=== PATIENT | female | born 1970 | race Asian ===

== ENCOUNTER 2017-05-09 12:36 | Inpatient (IN) | payer BC ==
[~2017-05-09] VITALS: Ht 157.5 cm; Wt 52.2 kg
[2017-05-09 12:57] VITALS: BP_SYST 129
--- NOTE | 2017-05-09 13:05 | NUR ---
Patient to ER bed 07 to gown for evaluation. Side rails up.
[2017-05-09 13:14] LABS: BILIRUBIN,URINE NEGATIVE (NEGATIVE); CLARITY/URINE SL HAZY (CLEAR); COLOR,URINE YELLOW (YELLOW); GLUCOSE,URINE NEGATIVE (NEGATIVE); KETONES,URINE 3+ (NEGATIVE); LEUKOCYTE ESTERASE ,URINE NEGATIVE (NEGATIVE); NITRITE, URINE NEGATIVE (NEGATIVE); PROTEIN URINE 1+ (NEGATIVE); UROBILINOGEN,URINE 0.2 (0.2-1.0)
--- NOTE | 2017-05-09 13:15 | NUR ---
Pt brought by , wheelchair requested A&Ox4, pt c/o 03/12 Left lower abdomen pain radiating to the back starting this am, nausea and vomiting , respirations even and unlabored, cap refill <3,skin pink and warm, pt denies medical conditions,
--- NOTE | 2017-05-09 13:15 | NUR ---
Dr Mcneill at bedside examining patient
[2017-05-09 13:16] LABS: BLOOD, URINE TRACE (NEGATIVE)
[2017-05-09 13:22] LABS: BACTERIA,URINE FEW /HPF (None Seen)
[2017-05-09 13:23] LABS: MUCUS,URINE 1+ /LPF (None Seen)
[2017-05-09] MEDS ORDERED: NACL 0.9% 1,000 ML IV ONE (13:28)
[2017-05-09] MEDS ORDERED: KETOROLAC TROMETHAMINE 30 MG VIAL IVP ONE (13:30)
[2017-05-09] MEDS ORDERED: ONDANSETRON HCL 4 MG/2 ML VIAL IVP ONE ×4 (13:45→17:15)
[2017-05-09 13:52] LABS: BASOPHILS % (AUTO) 0.1 % (0.0-2.0); EOSINOPHILS % (AUTO) 0.1 % (0.0-4.0); HEMATOCRIT 40.6 % (36-48); HEMOGLOBIN 13.8 g/dL (12.0-16.0); LYMPHOCYTES # (AUTO) 0.5 K/uL (1.0-5.5); LYMPHOCYTES % (AUTO) 4.9 % (20.5-51.5); MEAN CORPUSCULAR HEMOGLOBIN 31 pg (27-31); MEAN CORPUSCULAR HGB CONC 34 % (32-36); MEAN CORPUSCULAR VOLUME 93 fL (79.0-98.0); MONOCYTES # (AUTO) 0.2 K/uL (0.0-1.0); MONOCYTES % (AUTO) 2.1 % (1.7-9.3); NEUTROPHILS % (AUTO) 92.8 % (40.0-70.0); PLATELET COUNT (AUTO) 199 K/uL (130-430); RED BLOOD CELL COUNT(AUTO) 4.38 MIL/uL (4.2-6.2); RED CELL DISTRIBUTION WIDTH 11.8 % (9.0-15.0); WHITE BLOOD COUNT (AUTO) 9.7 K/uL (4.8-10.8)
[2017-05-09 13:55] LABS: CALCIUM 8.7 mg/dL (8.4-11.0); CREATININE 0.46 mg/dL (0.55-1.30); POTASSIUM 3.6 mmol/L (3.5-5.1)
[2017-05-09 14:00] LABS: ALBUMIN 4.6 g/dL (3.4-4.8); TOTAL BILIRUBIN 0.8 mg/dL (0.0-1.0)
[2017-05-09] MEDS ORDERED: fentaNYL CITRATE/PF 100 MCG/2 ML AMP IVP ONE (14:00)
--- NOTE | 2017-05-09 14:12 | NUR ---
Pt off the unit for CT
--- NOTE | 2017-05-09 14:26 | NUR ---
Pt returned from CT on stable condition, VS WNL, pain level decreased from 10 to 5 after fentanyl administration. no active nausea or vomiting noted.
[2017-05-09] MEDS ORDERED: HYDROmorphone 1 MG INJ. 1 MG/ML AMPUL IVP ONE ×2 (14:45→17:15)
--- NOTE | 2017-05-09 15:01 | NUR ---
Pt pain level 6/10 L lower abdomen, pt medicated as ordered with Dilaudid, will continue to monitor.
--- NOTE | 2017-05-09 15:19 | NUR ---
Patient to US via wheelchair
--- NOTE | 2017-05-09 16:15 | NUR ---
pt back from US via wheelchair
--- NOTE | 2017-05-09 16:49 | NUR ---
mMedication reconciliation completed with information provided by patient. Any prior medication reconciliation on file was reviewed and corrected.
--- NOTE | 2017-05-09 17:47 | NUR ---
medicated pt for pain 12/10
--- NOTE | 2017-05-09 17:54 | NUR ---
report given to Yenni
--- NOTE | 2017-05-09 17:55 | NUR ---
REPORT REPORT RECEIVED FROM ED NURSE. AWAITING PATIENT ARRIVAL, TJ ADMITTING NURSE TO HELP WITH ADMISSION PROCESS.
[2017-05-09 18:04] VITALS: BP_SYST 123
--- NOTE | 2017-05-09 18:04 | NUR ---
ADMISSION NOTE Received patient from ER via danielle, received report from THERMOSTAT REPAIRER. Patient admitted with diagnosis of LEFT OVARIAN MASS. Patient oriented to hospital routine, call light, toileting and safety-patient verbalized understanding.
--- NOTE | 2017-05-09 18:34 | NUR ---
OPENING NOTE PATIENT RESTING COMFORTABLY, COMPLAINTS OF PAIN 6/10, GIVEN PAIN MEDICATION PRIOR TO COMING TO THE FLOOR. GIVEN ZOFRAN AND DILAUDID IN ED. PATIENTS IV RUNNING PER MD ORDERS. PATIENTS BED IN LOWEST POSITION, CALL LIGHT WITHIN REACH, AND SIDE RAILS ARE UP FOR SAFETY MEASURES. PATIENT SHOWN CALL LIGHT FUNCTION, ENCOURAGED TO CALL WHEN NEEDS ARISE. WILL CONTINUE TO MONITOR PATIENT AND FOLLOW UP NECESSARY.
[2017-05-09] MEDS: D5/0.45 NS 1,000 ML IV SCH (18:41)
--- NOTE | 2017-05-09 19:47 | NUR ---
INITIAL ASSESSMENT PATIENT IN BED RESTING, FAMILY AT BEDSIDE. PATIENT DENIES ANY PAIN AT THIS TIME. NOTED ABDOMEN NONDISTENDED, PATIENT APPEARS GUARDED TO ABDOMEN. PATIENT AAO X4, ABLE TO MAKE NEEDS KNOWN. BED IN LOWEST POSITION. ENCOURAGE PATIENT TO CALL FOR ASSISTANCE. CALL LIGHT IN REACH.
--- NOTE | 2017-05-09 19:55 | NUR ---
paged paged for Dr Burger, dialed . s/w Viviane.
[2017-05-09] MEDS ORDERED: HYDROmorphone 2 MG/ML VIAL IVP PRN (20:15)
[2017-05-09] MEDS ORDERED: HYDROmorphone 1 MG INJ. 1 MG/ML AMPUL IVP PRN (20:15)
--- NOTE | 2017-05-09 22:00 | NUR ---
PAIN PAIN MEDICATION PROVIDED TO PATIENT. PATIENT REPORTS THE DILAUDID MEDICATION HELPS. WILL CONTINUE TO MONITOR.
[2017-05-09 23:21] VITALS: BP_SYST 123
[2017-05-10] VITALS (7 sets, daily range): BP systolic 95–109
--- NOTE | 2017-05-10 00:36 | NUR ---
ROUND PATIENT RESTING, DENIES ANY PAIN AT THIS TIME. ASSISTED PATIENT TO BATHROOM SAFELY. PATIENT BACK IN BED, RESTING WITH AT BEDSIDE. BED IN LOWEST POSITION, CALL LIGHT IN REACH.
[2017-05-10] MEDS: D5/0.45 NS 1,000 ML IV SCH ×2 (02:39→09:45)
--- NOTE | 2017-05-10 02:53 | NUR ---
MEDICATIONS HUNG NEW BAG OF IV FLUIDS PER MD ORDER. PATIENT RESTING AT THIS TIME, EASILY AROUSABLE, DENIES ANY PAIN AT THIS TIME.
--- NOTE | 2017-05-10 04:46 | NUR ---
ROUNDS PATIENT RESTING, DENIES ANY PAIN AT THIS TIME. FAMILY AT BEDSIDE WITH PATIENT FOR COMFORT.
[2017-05-10 06:38] LABS: BASOPHILS % (AUTO) 0.1 % (0.0-2.0); EOSINOPHILS % (AUTO) 0.2 % (0.0-4.0); HEMATOCRIT 33.9 % (36-48); HEMOGLOBIN 11.6 g/dL (12.0-16.0); LYMPHOCYTES # (AUTO) 0.9 K/uL (1.0-5.5); LYMPHOCYTES % (AUTO) 10.3 % (20.5-51.5); MEAN CORPUSCULAR HEMOGLOBIN 32 pg (27-31); MEAN CORPUSCULAR HGB CONC 34 % (32-36); MEAN CORPUSCULAR VOLUME 92 fL (79.0-98.0); MONOCYTES # (AUTO) 0.5 K/uL (0.0-1.0); MONOCYTES % (AUTO) 5.8 % (1.7-9.3); NEUTROPHILS # (AUTO) 7.1 K/uL (1.8-7.7); NEUTROPHILS % (AUTO) 83.6 % (40.0-70.0); PLATELET COUNT (AUTO) 182 K/uL (130-430); RED BLOOD CELL COUNT(AUTO) 3.67 MIL/uL (4.2-6.2); RED CELL DISTRIBUTION WIDTH 11.7 % (9.0-15.0); WHITE BLOOD COUNT (AUTO) 8.5 K/uL (4.8-10.8)
--- NOTE | 2017-05-10 07:24 | NUR ---
CLOSING PATIENT AWAKE, ALERT, ORIENTED X4. FAMILY AT BEDSIDE. ENDORSED TO DAYSHIFT OF POSSIBLE PROCEDURE TODAY PER MD, PATIENT FAMILY REQUEST TO WAIT TO SIGN ANYTHING UNTIL SPEAKS WITH MD, NURSE MADE AWARE. PATIENT DENIES ANY PAIN AT THIS TIME. BED IN LOWEST POSITION, CALL LIGHT IN REACH.
--- NOTE | 2017-05-10 08:13 | NUR ---
OPENING NOTE PATIENT RESTING COMFORTABLY, COMPLAINTS OF PAIN, TOLERABLE 5/10. PATIENT TO HAVE SURGERY TODAY. PATIENT SPOKE WITH DR. PACHECO. CONSENT IS SIGNED. CHECKLIST STARTED BY INSTRUCTIONAL TECHNOLOGY COORDINATOR NURSE. PATIENTS BED IN LOWEST POSITION, CALL LIGHT WITHIN REACH, AND SIDE RAILS ARE UP FOR SAFETY MEASURES. PATIENTS IS AT BEDSIDE FOR COMFORT. PATIENTS IV RUNNING PER MD ORDERS. WILL KEEP PATIENT UPDATED TO TIME OF SURGERY, POSSIBLY EARLY 0900. WILL CONTINUE TO MONITOR PATIENT FOR CHANGES IN STATUS.
--- NOTE | 2017-05-10 08:33 | NUR ---
JUNIOR CALLED DOWN TO O.R. SPOKE WITH NURSE IN OPERATING ROOM REGARDING URINE . OKAY TO ORDER PER DR. PACHECO. ORDER PLACED BY NURSE.
--- NOTE | 2017-05-10 08:37 | NUR ---
LAB CALLED LAB TO SEE IF URINE WAS STILL IN THE LAB FOR COMPLETION OF URINE HCG. PATIENT HAS ALREADY URINATED THIS MORNING. SPECIMEN IS IN LAB. WILL CALL MD REGARDING ORDER FOR OKAY.
--- NOTE | 2017-05-10 08:43 | NUR ---
MADDI PACHECO CALLED Kervin SPOKE WITH DONNY POWELL TO USE SPECIMEN IN LAB FROM 05/09/17.
--- NOTE | 2017-05-10 08:44 | NUR ---
Nutrition Update Cesar Scale 18 noted. Pt admitted for L ovarian mass. Diet: NPO BMI: 21 kg/m2 RD to follow per nutrition care standards.
[2017-05-10 08:54] LABS: HCG,QUAL RESULT NEGATIVE (NEGATIVE)
--- NOTE | 2017-05-10 09:27 | NUR ---
TO SURGERY PATIENT WENT TO SURGERY VIA BED BY DELORES OR TECH. PATIENTS WENT TO WAITING ROOM BY OR. AWAITING REPORT AND RETURN.
--- NOTE | 2017-05-10 10:30 | NUR ---
ROUNDS PATIENT STILL IN SURGERY.
[2017-05-10] MEDS ORDERED: LR 1,000 ML IV SCH (11:05)
[2017-05-10] MEDS ORDERED: HYDROmorphone 2 MG/ML VIAL IVP PRN ×2 (11:15)
[2017-05-10] MEDS ORDERED: ONDANSETRON HCL 4 MG/2 ML VIAL IVP PRN ×2 (11:15→12:15)
[2017-05-10] MEDS ORDERED: HYDROmorphone 1 MG INJ. 1 MG/ML AMPUL IVP PRN (11:15)
[2017-05-10] MEDS ORDERED: MEPERIDINE HCL/PF 25 MG/ML DISP.SYRIN IVP PRN ×2 (11:15)
[2017-05-10] MEDS ORDERED: KETOROLAC TROMETHAMINE 30 MG VIAL IVP PRN (11:15)
[2017-05-10] MEDS ORDERED: OXYCODONE/ACETAMINOPHEN 5-325 TABLET PO PRN ×2 (12:15)
[2017-05-10] MEDS ORDERED: HYDROcodone/ACETAMIN 5-325 MG TAB (NORCO/ VICODIN) PO PRN (12:15)
[2017-05-10] MEDS ORDERED: SIMETHICONE 80 MG TAB.CHEW PO SCH (13:00)
--- NOTE | 2017-05-10 13:38 | NUR ---
NOTE PATIENT EXPECTED TO RETURN FROM SURGERY. AWAITING REPORT.
[2017-05-10] MEDS ORDERED: KETOROLAC TROMETHAMINE 30 MG VIAL IVP ONE ×2 (15:00→17:34)
[2017-05-10] MEDS ORDERED: NEOSTIGMINE METHYLSULFATE 1 MG/ML, 10 ML VIAL IVP ONE (17:34)
[2017-05-10] MEDS ORDERED: CEFAZOLIN 2 GM IVPB PREMIX 50 ML IV ONE (17:34)
[2017-05-10] MEDS ORDERED: ONDANSETRON HCL 4 MG/2 ML VIAL IVP ONE (17:34)
[2017-05-10] MEDS ORDERED: NS 1000 ML BAG IV ONE (17:34)
[2017-05-10] MEDS ORDERED: ROCURONIUM BROMIDE 10 MG/ML (ZEMURON) IV ONE (17:34)
[2017-05-10] MEDS ORDERED: PROPOFOL 200MG/ 20ML VIAL (DIPRIVAN) IV ONE (17:34)
[2017-05-10] MEDS ORDERED: GLYCOPYRROLATE 0.2 MG/ML VIAL IJ ONE (17:34)
[2017-05-10] MEDS ORDERED: ROPIVACAINE 40 MG/20 ML AMP EP ONE (17:34)
[2017-05-10] MEDS ORDERED: LR 1,000 ML IV.SOLN IV ONE (17:34)
[2017-05-10] MEDS ORDERED: SEVOFLURANE 15 MIN GAS INH ONE (17:34)
[2017-05-10] MEDS ORDERED: MIDAZOLAM HCL 5 MG/ML VIAL (VERSED) IV ONE (17:34)
[2017-05-10] MEDS ORDERED: LIDOCAINE/EPI 1% 1:100000 20 ML VIAL INJ ONE (17:34)
[2017-05-10] MEDS ORDERED: NS IRRIG SOLN 1000 ML IR ONE (17:34)
[2017-05-10] MEDS ORDERED: fentaNYL CITRATE/PF 100 MCG/2 ML AMP IVP ONE (17:34)
--- NOTE | 2017-05-10 17:35 | NUR ---
D/C Patient Patient given medication reconciliation form and D/C instructions. Exit Care provided. Patient verbalized understanding. MD discussed with patient the results and treatment provided. Ambulatory with steady gait for discharge to home. Patient in stable condition, ID band removed. IV catheter removed, intact and dressing applied, no active bleeding. Rx of Percocet, Gas X, and Ibuprofen given. Patient educated on pain management. All belongings sent with patient. Patient transported home via personal vehicle by spouse, [place]
== END 2017-05-10 17:35 | disposition home or self-care (01) | DRG 743 ==
LOC: SED 12:36 → SMU 17:05
PROVIDERS: ADMIT Specialist; ATTEND Specialist
PROC: 0UT14ZZ Resection of Left Ovary, Percutaneous Endoscopic Approach (ICD-10-PCS; 2017-05-10)
PROC: 0DNH4ZZ Release Cecum, Percutaneous Endoscopic Approach (ICD-10-PCS; 2017-05-10)
PROC: 0UT64ZZ Resection of Left Fallopian Tube, Percutaneous Endoscopic Approach (ICD-10-PCS; principal; 2017-05-10 13:15)
DX: N83.512 Torsion of left ovary and ovarian pedicle (principal); D25.9 Leiomyoma of uterus, unspecified; D27.1 Benign neoplasm of left ovary
CPT/HCPCS: 36415; 76830-TC; 76857; 80053; 81000-TC; 81025; 83690-TC; 84703; 85025; 86304; 87081; 88304; 88307; 94010; 96374; 96375; 96376; 99291; C1782; J0690; J1170; J1885; J2250; J2405; J2704; J2710; J2795; J3010; J3490; J7030; J7120